=== PATIENT | male | born 1960 | race Caucasian/White ===

== ENCOUNTER 2018-04-30 04:41 | Emergency (ER) | payer OTHER ==
[2018-04-30] MEDS ORDERED: NA CHLORIDE 0.9% 1,000 ML ONE (06:05)
[2018-04-30 06:23] LABS: Absolute Lymphocytes (CBC) 2.2 K/uL (0.7-4.9); Absolute Monocytes 0.5 K/uL (0.1-1.3); Absolute Neutrophil 2.1 K/uL (1.8-8.0); Basophils % 0.9 % (0-1.3); Eosinophils % 4.8 % (0-4.4); Hematocrit 45.1 % (39.6-49.0); Lymphocytes % 43.1 % (15.3-44.8); MCH 29.5 pg (27.0-35.0); MCV 87.1 fL (80-100); MPV 8.5 fL (7.6-11.3); Monocytes % 9.2 % (3.3-12.3); RBC Red Blood Cell Count 5.18 M/uL (4.33-5.43)
[2018-04-30 06:36] LABS: Urine Blood NEGATIVE (NEG); Urine Glucose 3+ (NEG); Urine Protein NEGATIVE (NEG); Urine pH 5.5 (5.0-7.0)
[2018-04-30 06:43] LABS: Albumin 3.8 g/dL (3.4-5.0); Bilirubin Total 0.5 mg/dL (0.2-1.0); Potassium 3.9 mmol/L (3.5-5.1); Protein, Total 7.1 g/dL (6.4-8.2)
[2018-04-30] MEDS ORDERED: INSULIN -REGULAR HUMAN 50 UNIT/0.5 ML ML ONE (07:21)
--- NOTE | 2018-04-30 08:19 | RAD REPORT ---
EXAM DESCRIPTION: CT - Abdomen Pelvis W Contrast - 04/30/2018 6:59 am CLINICAL HISTORY: Abdominal pain left-sided abdominal pain COMPARISON: 2015 TECHNIQUE: Computed axial tomography of the abdomen pelvis was obtained. 100 cc Isovue-300 was admin istered intravenously. Oral contrast was not requested which limits evaluation of bowel. All CT scans are performed using dose optimization technique as appropriate and may include automated exposure control or mA/KV adjustment according to patient size. FINDINGS: The liver, spleen, pancreas, adrenal and left kidney appear unremarkable. Tiny nonobstruct ing right renal calculus is present. Gallstones are present. Gallbladder wall does not appear thickened. There is no evidence of diverticulitis. Appendix is normal Small left pericardiac lymph node is unchanged. Postsurgical changes involve stomach Spondylosis involves lumbar spine resulting in spinal stenosis IMPRESSION: Tiny nonobstructing right renal calculus Cholelithiasis without evidence cholecystitis
--- NOTE | 2018-04-30 08:43 | ER ---
Nurse's Notes [facility] Name: Herber Gracia Age: 57 yrs Sex: Male : 1960 Arrival Date: 04/30/2018 Time: 04:45 Bed 19 Private MD: Remington Navarro Diagnosis: Abdominal tenderness-adipose tissue left costal margin Presentation: 04/30 04:58 Presenting complaint: Patient states: I noticed pain on my left side that started a jb4 week and a half ago and on I noticed a lump on my left side. It didn't feel right and I was going to go see Dr. Nettles but the office was closed. Transition of care: patient was not received from another setting of care. Onset of symptoms was April 19, 2018. Risk Assessment: Do you want to hurt yourself or someone else? Patient reports no desire to harm self or others. Initial Sepsis Screen: Does the patient meet any 2 criteria? HR > 90 bpm. Yes Does the patient have a suspected source of infection? No. Patient's initial sepsis screen is negative. Care prior to arrival: None. 04:58 Method Of Arrival: Ambulatory jb4 04:58 Acuity: SPENCER 4 jb4 Triage Assessment: 05:03 General: Appears in no apparent distress. comfortable, Behavior is calm, cooperative, jb4 appropriate for age, Lump noted under the left breast.. Pain: Complains of pain in left lateral anterior chest Pain does not radiate. Pain currently is 4 out of 10 on a pain scale. at worst was 6 out of 10 on a pain scale. Quality of pain is described as dull, pressure, Pain began 1.5 weeks ago Is intermittent. EENT: No signs and/or symptoms were reported regarding the EENT system. Neuro: Level of Consciousness is awake, alert, obeys commands, Oriented to person, place, time, situation. Cardiovascular: Patient's skin is warm and dry. Respiratory: Airway is patent Respiratory effort is even, unlabored, Respiratory pattern is regular, symmetrical. GI: No signs and/or symptoms were reported involving the gastrointestinal system. : No signs and/or symptoms were reported regarding the genitourinary system. Derm: Skin is intact, Skin is pink, warm \T\ dry. Musculoskeletal: Circulation, motion, and sensation intact. Historical: - Allergies: 05:03 No Known Allergies; jb4 - Home Meds: 05:03 metformin 500 mg Oral tab 2 tabs 2 times per day [Active]; victoza [Active]; tresiba jb4 [Active]; meloxicam oral oral [Active]; valsartan oral oral [Active]; Prilosec 20 mg Oral cpDR 1 cap once daily [Active]; Lasix Oral [Active]; - PMHx: 05:03 BPH; Diabetes - NIDDM; GERD; Hypertension; jb4 - PSHx: 05:03 SHOULDERS X 2; GASTROPLASTY; HERNIATED DISCS X2; KNEES X 2; jb4 - Immunization history:: Adult Immunizations up to date, Flu vaccine is not up to date. - Social history:: Smoking status: Patient/guardian denies using tobacco, Patient uses alcohol, only on a social basis. - Ebola Screening: : No symptoms or risks identified at this time. - Family history:: not pertinent. Screenin:09 Abuse screen: Denies threats or abuse. Nutritional screening: No deficits noted. jb4 Tuberculosis screening: No symptoms or risk factors identified. Fall Risk None identified. Assessment: 05:09 General: see triage assessment.. jb4 06:00 Reassessment: Patient appears in no apparent distress at this time. Patient and/or jb4 family updated on plan of care and expected duration. Pain level reassessed. Patient is alert, oriented x 3, equal unlabored respirations, skin warm/dry/pink. 06:40 Reassessment: PT to ct. jb4 07:34 Reassessment: Patient appears in no apparent distress at this time. Patient and/or em family updated on plan of care and expected duration. Pain level reassessed. Patient is alert, oriented x 3, equal unlabored respirations, skin warm/dry/pink. Patient states feeling better. 08:18 Reassessment: Patient appears in no apparent distress at this time. Patient and/or em family updated on plan of care and expected duration. Pain level reassessed. Patient is alert, oriented x 3, equal unlabored respirations, skin warm/dry/pink. Patient states feeling better. 09:09 Reassessment: Patient appears in no apparent distress at this time. Patient and/or em family updated on plan of care and expected duration. Pain level reassessed. Patient is alert, oriented x 3, equal unlabored respirations, skin warm/dry/pink. Patient states feeling better. Vital Signs: 05:03 BP 149 / 76; Pulse 92; Resp 16; Temp 97.9; Pulse Ox 96% on R/A; Weight 131.54 kg (R); jb4 Height 5 ft. 9 in. (175.26 cm) (R); Pain 4/10; 06:00 BP 135 / 72; Pulse 73; Resp 18; Pulse Ox 95% on R/A; jb4 07:34 BP 123 / 83; Pulse 84; Resp 18; Pulse Ox 96% on R/A; Pain 4/10; em 08:17 BP 128 / 71; Pulse 71; Resp 16; Pulse Ox 97% on R/A; em 09:09 BP 119 / 71; Pulse 63; Resp 16; Pulse Ox 99% on R/A; em 05:03 Body Mass Index 42.83 (131.54 kg, 175.26 cm) jb4 ED Course: 04:45 Patient arrived in ED. es 04:46 Remington Navarro MD is Private Physician. es 04:58 Vinay Rincon, BARBI is Primary Nurse. jb4 05:01 Triage completed. jb4 05:02 Rashid Wynn MD is Attending Physician. ron 05:03 Arm band placed on right wrist. jb4 05:09 Patient has correct armband on for positive identification. Placed in gown. Call light jb4 in reach. Side rails up X 1. Pulse ox on. NIBP on. 05:37 X-ray completed. Portable x-ray completed in exam room. Patient tolerated procedure ls3 well. 05:37 CXR XRAY In Process Unspecified. EDMS 06:00 Initial lab(s) drawn, by me, sent to lab. Urine collected: clean catch specimen, clear. jb4 Inserted saline lock: 20 gauge in right Blood collected. 06:02 Noni Briscoe FNP-C is PHCP. snw 06:19 Radiology exam delayed due to lab results not completed at this time. (BUN/Creatinine). nj 06:43 Radiology exam delayed due to lab results not completed at this time. (BUN/Creatinine). nj 06:[address] via wheelchair. kw1 06:59 CT Abd/Pelvis - W/Contrast In Process Unspecified. EDMS 08:43 Remington Navarro MD is Referral Physician. snw 09:08 No provider procedures requiring assistance completed. intact, bleeding controlled, No em redness/swelling at site. Pressure dressing applied. Administered Medications: 06:18 Drug: NS 0.9% 1000 ml Route: IV; Rate: 1 bolus; Site: right antecubital; jb4 07:30 Follow up: IV Status: Completed infusion; IV Intake: 1000ml em 07:19 Drug: Insulin Regular Human 10 units {Co-Signature: em (Mikael rCooks [employer]ON FOREMAN/SUPERINTENDANT).} Route: ss Sub-Q; Site: right lower abdomen; 08:17 Follow up: Response: No adverse reaction; Blood sugar is lowered em Point of Care Testing: Blood Glucose: 08:17 Blood Glucose: 227 mg/dL; em Ranges: Intake: 07:30 IV: 1000ml; Total: 1000ml. em Outcome: 08:43 Discharge ordered by . snw 09:08 Discharged to home ambulatory. em 09:08 Condition: good 09:08 Discharge instructions given to patient, Instructed on discharge instructions, follow up and referral plans. Demonstrated understanding of instructions, follow-up care. 09:10 Patient left the ED. em Signatures: Dispatcher [employer] EDWA Rashid Wynn MD MD cha Therrien, Shelly, DISTRICT SUPERINTENDENT-C DISTRICT SUPERINTENDENT-Csnw Tiana Andrade Edgar, [employer] FOREMAN/SUPERINTENDANT [employer] FOREMAN/SUPERINTENDANT em Richa Fam RN RN Vinay Elena RN RN jb4 Tyson Ferraro Kimberly 1 Sushil Chin 3 Mikael Crooks [employer] FOREMAN/SUPERINTENDANT em
--- NOTE | 2018-04-30 08:43 | EDPHYS ---
Physician Documentation [facility] Name: Herber Gracia Age: 57 yrs Sex: Male : 1960 Arrival Date: 04/30/2018 Time: 04:45 Bed 19 Private MD: Remington Navarro ED Physician Rashid Wynn HPI: 04/30 05:39 This 57 yrs old Male presents to ER via Ambulatory with complaints of Lump on ron left side with pain. 05:39 The patient presents with abdominal pain in the upper abdomen. Onset: The ron symptoms/episode began/occurred 5 day(s) ago. The symptoms do not radiate. Associated signs and symptoms: none. The symptoms are described as dull. Severity of pain: At its worst the pain was mild in the emergency department the pain is unchanged. Historical: - Allergies: 05:03 No Known Allergies; jb4 - Home Meds: 05:03 metformin 500 mg Oral tab 2 tabs 2 times per day [Active]; victoza [Active]; tresiba jb4 [Active]; meloxicam oral oral [Active]; valsartan oral oral [Active]; Prilosec 20 mg Oral cpDR 1 cap once daily [Active]; Lasix Oral [Active]; - PMHx: 05:03 BPH; Diabetes - NIDDM; GERD; Hypertension; jb4 - PSHx: 05:03 SHOULDERS X 2; GASTROPLASTY; HERNIATED DISCS X2; KNEES X 2; jb4 - Immunization history:: Adult Immunizations up to date, Flu vaccine is not up to date. - Social history:: Smoking status: Patient/guardian denies using tobacco, Patient uses alcohol, only on a social basis. - Ebola Screening: : No symptoms or risks identified at this time. - Family history:: not pertinent. ROS: 05:39 Constitutional: Negative for fever, chills, and weight loss, Eyes: Negative for injury, ron pain, redness, and discharge, ENT: Negative for injury, pain, and discharge, Neck: Negative for injury, pain, and swelling, Cardiovascular: Negative for chest pain, palpitations, and edema, Respiratory: Negative for shortness of breath, cough, wheezing, and pleuritic chest pain, Back: Negative for injury and pain, : Negative for injury, bleeding, discharge, and swelling, MS/Extremity: Negative for injury and deformity, Skin: Negative for injury, rash, and discoloration, Neuro: Negative for headache, weakness, numbness, tingling, and seizure, Psych: Negative for depression, anxiety, suicide ideation, homicidal ideation, and hallucinations, Allergy/Immunology: Negative for hives, rash, and allergies, Endocrine: Negative for neck swelling, polydipsia, polyuria, polyphagia, and marked weight changes, Hematologic/Lymphatic: Negative for swollen nodes, abnormal bleeding, and unusual bruising. 05:39 Abdomen/GI: Positive for abdominal pain, of the left upper quadrant. Exam: 05:39 Constitutional: This is a well developed, well nourished patient who is awake, alert, ron and in no acute distress. Head/Face: Normocephalic, atraumatic. Eyes: Pupils equal round and reactive to light, extra-ocular motions intact. Lids and lashes normal. Conjunctiva and sclera are non-icteric and not injected. Cornea within normal limits. Periorbital areas with no swelling, redness, or edema. ENT: Nares patent. No nasal discharge, no septal abnormalities noted. Tympanic membranes are normal and external auditory canals are clear. Oropharynx with no redness, swelling, or masses, exudates, or evidence of obstruction, uvula midline. Mucous membranes moist. Neck: Trachea midline, no thyromegaly or masses palpated, and no cervical lymphadenopathy. Supple, full range of motion without nuchal rigidity, or vertebral point tenderness. No Meningismus. Chest/axilla: Normal chest wall appearance and motion. Nontender with no deformity. No lesions are appreciated. Cardiovascular: Regular rate and rhythm with a normal S1 and S2. No gallops, murmurs, or rubs. Normal PMI, no JVD. No pulse deficits. Respiratory: Lungs have equal breath sounds bilaterally, clear to auscultation and percussion. No rales, rhonchi or wheezes noted. No increased work of breathing, no retractions or nasal flaring. Abdomen/GI: Soft, non-tender, with normal bowel sounds. No distension or tympany. No guarding or rebound. No evidence of tenderness throughout. Back: No spinal tenderness. No costovertebral tenderness. Full range of motion. Male : Normal genitalia with no discharge or lesions. Skin: Warm, dry with normal turgor. Normal color with no rashes, no lesions, and no evidence of cellulitis. MS/ Extremity: Pulses equal, no cyanosis. Neurovascular intact. Full, normal range of motion. Neuro: Awake and alert, GCS 15, oriented to person, place, time, and situation. Cranial nerves II-XII grossly intact. Motor strength 5/5 in all extremities. Sensory grossly intact. Cerebellar exam normal. Normal gait. Psych: Awake, alert, with orientation to person, place and time. Behavior, mood, and affect are within normal limits. Vital Signs: 05:03 BP 149 / 76; Pulse 92; Resp 16; Temp 97.9; Pulse Ox 96% on R/A; Weight 131.54 kg (R); jb4 Height 5 ft. 9 in. (175.26 cm) (R); Pain 4/10; 06:00 BP 135 / 72; Pulse 73; Resp 18; Pulse Ox 95% on R/A; jb4 07:34 BP 123 / 83; Pulse 84; Resp 18; Pulse Ox 96% on R/A; Pain 4/10; em 08:17 BP 128 / 71; Pulse 71; Resp 16; Pulse Ox 97% on R/A; em 09:09 BP 119 / 71; Pulse 63; Resp 16; Pulse Ox 99% on R/A; em 05:03 Body Mass Index 42.83 (131.54 kg, 175.26 cm) 4 MDM: 05:02 Patient medically screened. [facility] 05:42 Data reviewed: vital signs, nurses notes, lab test result(s), radiologic studies, CT ron scan, plain films. 04/30 05:39 Order name: CBC with Diff; Complete Time: 06:40 ron 04/30 05:39 Order name: Comprehensive Metabolic Panel; Complete Time: 06:50 [facility] 04/30 05:12 Order name: CXR XRAY jb4 04/30 05:39 Order name: CT Abd/Pelvis - W/Contrast; Complete Time: 08:42 [facility] 04/30 05:43 Order name: Lipase; Complete Time: 06:40 [facility] 04/30 06:17 Order name: Urine Dipstick--Ancillary (enter results); Complete Time: 06:40 mw 04/30 05:39 Order name: Urine Dipstick-Ancillary (obtain specimen); Complete Time: 06:18 [facility] 04/30 07:49 Order name: FSBS; Complete Time: 08:17 snw Administered Medications: 06:18 Drug: NS 0.9% 1000 ml Route: IV; Rate: 1 bolus; Site: right antecubital; jb4 07:30 Follow up: IV Status: Completed infusion; IV Intake: 1000ml em 07:19 Drug: Insulin Regular Human 10 units {Co-Signature: em (Mikael Crooks BELL SPINNER SOUSAPHONES).} Route: ss Sub-Q; Site: right lower abdomen; 08:17 Follow up: Response: No adverse reaction; Blood sugar is lowered em Point of Care Testing: Blood Glucose: : Blood Glucose: 227 mg/dL; em Ranges: Critical Glucose Levels:Adult <50 mg/dl or >400 mg/dl <40 mg/dl or >180 mg/dl Disposition: 04/30/18 08:43 Discharged to Home. Impression: Abdominal tenderness - adipose tissue left costal margin. - Condition is Stable. - Discharge Instructions: Abdominal Pain, Adult, Type 2 Diabetes Mellitus, Diagnosis, Adult, Abdominal Pain, Adult, [id number]. - Medication Reconciliation Form, Thank You Letter, Antibiotic Education, Prescription Opioid Use form. - Follow up: Remington Navarro; When: 2 - 3 days; Reason: Recheck today's complaints, Continuance of care, Re-evaluation by your physician. - Problem is new. - Symptoms have improved. Signatures: Dispatcher [employer] EDOH Rashid Wynn MD MD cha Therrien, Shelly, STUNT DOUBLE-C STUNT DOUBLE-Csnw Mikael Crooks, SHAMIKA [employer] SPINNER SOUSAPHONES em Richa Fam RN RN ss Bryson, James, RN RN jb4 Mikael Crooks BELL SPINNER SOUSAPHONES em Corrections: (The following items were deleted from the chart) 09:10 08:43 04/30/2018 08:43 Discharged to Home. Impression: Abdominal tenderness - adipose em tissue left costal margin. Condition is Stable. Discharge Instructions: Abdominal Pain, Adult, Type 2 Diabetes Mellitus, Diagnosis, Adult, Abdominal Pain, Adult, [id number]. Forms are Medication Reconciliation Form, Thank You Letter, Antibiotic Education, Prescription Opioid Use. Follow up: Remington Navarro; When: 2 - 3 days; Reason: Recheck today's complaints, Continuance of care, Re-evaluation by your physician. Problem is new. Symptoms have improved. snw
[2018-04-30 09:14] VITALS: TEMP 97.9
[2018-04-30 09:19] VITALS: BP 119/71; O2SAT 99
--- NOTE | 2018-04-30 09:58 | RAD REPORT ---
EXAM DESCRIPTION: Shahram Single View04/30/2018 5:37 am CLINICAL HISTORY: Chest pain COMPARISON: 2016 FINDINGS: The lungs appear clear of acute infiltrate. The heart is normal size IMPRESSION: No acute abnormalities displayed
== END 2018-04-30 09:10 | disposition home or self-care (01) ==
LOC: ER 04:41
DX: R10.812 Left upper quadrant abdominal tenderness (principal); E65 Localized adiposity; I10 Essential (primary) hypertension; E11.9 Type 2 diabetes mellitus without complications; K21.9 Gastro-esophageal reflux disease without esophagitis
CPT/HCPCS: 36415; 71045; 74177; 80053; 81003; 82962; 83690; 85025; 96360; 96372; 99284; J7030; Q9967

== ENCOUNTER 2019-04-29 05:16 | Observation (INO) | payer OTHER ==
[2019-04-29] MEDS ORDERED: ONDANSETRON 4 MG/2 ML VIAL ONE ×2 (05:57→08:18)
[2019-04-29] MEDS ORDERED: MORPHINE 4 MG/ML SYR ONE (05:57)
[2019-04-29] MEDS ORDERED: NA CHLORIDE 0.9% 1,000 ML ONE ×2 (06:15→09:44)
[2019-04-29] MEDS ORDERED: FAMOTIDINE 20 MG/2 ML VIAL IV ONE (06:15)
[2019-04-29 06:22] LABS: Absolute Lymphocytes (CBC) 1.3 K/uL (0.7-4.9); Basophils % 0.6 % (0-1.3); Hematocrit 47.1 % (39.6-49.0); Lymphocytes % 21.8 % (15.3-44.8); MPV 8.2 fL (7.6-11.3); RBC Red Blood Cell Count 5.22 M/uL (4.33-5.43)
[2019-04-29 06:46] LABS: Protime INR 0.91
[2019-04-29 06:47] LABS: ALT/SGPT 55 U/L (12-78); AST/SGOT 32 U/L (15-37); Albumin 3.9 g/dL (3.4-5.0); Alkaline Phosphatase 51 U/L (45-117); BUN Blood Urea Nitrogen 9 mg/dL (7-18); Bicarbonate 26 mmol/L (21-32); Bilirubin Direct 0.2 mg/dL (0-0.2); Bilirubin Total 0.8 mg/dL (0.2-1.0); Glucose Level 281 mg/dL (74-106); Lipase 78 U/L (73-393); Magnesium 1.7 mg/dL (1.8-2.4); NT PRO-BNP 73 pg/mL (<125); Potassium 4.6 mmol/L (3.5-5.1); Protein, Total 7.5 g/dL (6.4-8.2); Sodium Level 136 mmol/L (136-145); Troponin (Emerg Dept Use Only) < 0.02 ng/mL (0.0-0.045)
[2019-04-29] MEDS ORDERED: MAGNESIUM SULFATE 1 gm IVPB 1 GM/100 ML BAG IV ONE (07:09)
--- NOTE | 2019-04-29 08:17 | RAD REPORT ---
EXAM DESCRIPTION: CT - Abdomen Pelvis W Contrast - 04/29/2019 7:51 am CLINICAL HISTORY: ABD PAIN, nausea and vomiting history of gastric surgery COMPARISON: CT imaging April 2018 TECHNIQUE: Biphasic, helical CT imaging of the abdomen and pelvis was performed following 100 ml non -ionic IV contrast. Oral contrast was given. All CT scans are performed using dose optimization technique as appropriate and may include automated exposure control or mA/KV adjustment according to patient size. FINDINGS: No suspicious findings in the lung bases. Liver shows moderate diffuse fatty infiltration the liver. No focal liver lesion identified. No pancr eatic or peripancreatic significant finding. Clips and calcification are present along the anterior s uperior margin of the spleen. No acute splenic process. Multi stone cholelithiasis present similar to comparison. No wall thickening or edema seen. No duct stone or biliary tree dilatation. Symmetric renal function is seen with no hydronephrosis or suspicious renal mass. No pyelonephritis o r acute parenchymal process. No bladder abnormalities. No adrenal abnormalities. No gastric dilatation or gastric wall thickening. No gastric outlet obstruction. Postsurgical changes to the stomach are present. No duodenum acute finding. Stomach and duodenum show no evidence for ron nge since April 2018. No dilation of the large or small bowel. Retrocecal appendix is normal. No free air, free fluid or i nflammatory stranding. No hernia, mass or bulky lymphadenopathy. No suspicious bony findings. IMPRESSION: No bowel obstruction, free air or surgically emergent finding. No active process identif iable. Patient has multi stone cholelithiasis. No evidence for duct stone or acute gallbladder or biliary tr ee process. Moderate diffuse fatty infiltration of the liver.
--- NOTE | 2019-04-29 08:43 | RAD REPORT ---
EXAM DESCRIPTION: US - Abdomen Exam Limited - 04/29/2019 8:26 am CLINICAL HISTORY: ABD PAIN COMPARISON: Abdomen Pelvis W Contrast dated 04/29/2019 FINDINGS: Multiple 5 mm or less gallstones seen. Gallstones have been previously diagnosed in this p atient. No wall thickening or pericholecystic fluid. No duct stone identifiable. No dilatation of the biliary tree. Fatty infiltration a partially imaged liver. IMPRESSION: Multi stone cholelithiasis as previously detailed. No acute gallbladder finding. No duct stone identified and no biliary tree dilatation.
--- NOTE | 2019-04-29 09:08 | RAD REPORT ---
EXAM DESCRIPTION: RAD - Chest Single View - 04/29/2019 7:01 am CLINICAL HISTORY: Nausea, vomiting, abdominal pain COMPARISON: April 2018 TECHNIQUE: AP portable chest image was obtained 0655 hours . FINDINGS: Lung volumes are low. No peripheral mass or consolidation. No significant failure or volum e overload. Heart and vasculature are normal. No measurable pleural effusion and no pneumothorax. No acute bony abnormality seen. No acute aortic findings suspected. IMPRESSION: No acute cardiopulmonary process.
[2019-04-29] MEDS ORDERED: PROMETHAZINE 25 MG/ML VIAL ONE (09:42)
--- NOTE | 2019-04-29 09:54 | EDPHYS ---
Physician Documentation [facility] Name: Herber Gracia Age: 58 yrs Sex: Male : 1960 Arrival Date: 04/29/2019 Time: 05:17 Bed 7 Private MD: VALDEZ Physician Rashid Wynn HPI: 04/29 06:01 This 58 yrs old Male presents to ER via Ambulatory with complaints of ron Abdominal Pain, Nausea/Vomiting. 06:01 The patient presents to the emergency department with nausea, vomiting, abdominal pain, ron of the epigastric area and right upper quadrant. Onset: The symptoms/episode began/occurred yesterday. Possible causes: unknown. The symptoms are aggravated by movement, pressure, food , The symptoms are alleviated by remaining still. Associated signs and symptoms: The patient has no apparent associated signs or symptoms. Severity of symptoms: At their worst the symptoms were moderate in the emergency department the symptoms are unchanged. The patient has not experienced similar symptoms in the past. Historical: - Allergies: 05:27 No Known Allergies; ea - Home Meds: 05:27 victoza [Active]; ea - PMHx: 05:27 BPH; Diabetes - NIDDM; GERD; Hypertension; ea - PSHx: 05:27 SHOULDERS X 2; KNEES X 2; HERNIATED DISCS X2; GASTROPLASTY; ea - Immunization history:: Adult Immunizations up to date. - Social history:: Smoking status: Patient/guardian denies using tobacco. - Ebola Screening: : No symptoms or risks identified at this time. - Family history:: not pertinent. ROS: 06:01 Constitutional: Negative for fever, chills, and weight loss, Eyes: Negative for injury, ron pain, redness, and discharge, ENT: Negative for injury, pain, and discharge, Neck: Negative for injury, pain, and swelling, Respiratory: Negative for shortness of breath, cough, wheezing, and pleuritic chest pain, Back: Negative for injury and pain, : Negative for injury, bleeding, discharge, and swelling, MS/Extremity: Negative for injury and deformity, Skin: Negative for injury, rash, and discoloration, Neuro: Negative for headache, weakness, numbness, tingling, and seizure, Psych: Negative for depression, anxiety, suicide ideation, homicidal ideation, and hallucinations, Allergy/Immunology: Negative for hives, rash, and allergies, Endocrine: Negative for neck swelling, polydipsia, polyuria, polyphagia, and marked weight changes, Hematologic/Lymphatic: Negative for swollen nodes, abnormal bleeding, and unusual bruising. 06:01 Cardiovascular: Positive for palpitations. 06:01 Abdomen/GI: Positive for abdominal pain, of the epigastric area, right upper quadrant and left upper quadrant. Exam: 06:01 Constitutional: This is a well developed, well nourished patient who is awake, alert, ron and in no acute distress. Head/Face: Normocephalic, atraumatic. Eyes: Pupils equal round and reactive to light, extra-ocular motions intact. Lids and lashes normal. Conjunctiva and sclera are non-icteric and not injected. Cornea within normal limits. Periorbital areas with no swelling, redness, or edema. ENT: Nares patent. No nasal discharge, no septal abnormalities noted. Tympanic membranes are normal and external auditory canals are clear. Oropharynx with no redness, swelling, or masses, exudates, or evidence of obstruction, uvula midline. Mucous membranes moist. Neck: Trachea midline, no thyromegaly or masses palpated, and no cervical lymphadenopathy. Supple, full range of motion without nuchal rigidity, or vertebral point tenderness. No Meningismus. Chest/axilla: Normal chest wall appearance and motion. Nontender with no deformity. No lesions are appreciated. Respiratory: Lungs have equal breath sounds bilaterally, clear to auscultation and percussion. No rales, rhonchi or wheezes noted. No increased work of breathing, no retractions or nasal flaring. Back: No spinal tenderness. No costovertebral tenderness. Full range of motion. Male : Normal genitalia with no discharge or lesions. Skin: Warm, dry with normal turgor. Normal color with no rashes, no lesions, and no evidence of cellulitis. MS/ Extremity: Pulses equal, no cyanosis. Neurovascular intact. Full, normal range of motion. Neuro: Awake and alert, GCS 15, oriented to person, place, time, and situation. Cranial nerves II-XII grossly intact. Motor strength 5/5 in all extremities. Sensory grossly intact. Cerebellar exam normal. Normal gait. Psych: Awake, alert, with orientation to person, place and time. Behavior, mood, and affect are within normal limits. 06:01 Cardiovascular: Rate: tachycardic, Rhythm: regular, Pulses: Pulses are 4+ in bilateral radial, brachial, femoral, popliteal, posterior tibial and and dorsalis pedis arteries.. Heart sounds: normal, Edema: is not appreciated, JVD: is not appreciated. 06:01 Abdomen/GI: Inspection: distension, Bowel sounds: normal, Palpation: moderate abdominal tenderness, in the right lower quadrant and left lower quadrant, Liver: no appreciated palpable abnormalities, Hernia: not appreciated. Vital Signs: 05:27 BP 166 / 82; Pulse 104; Resp 19; Temp 97.9; Pulse Ox 95% on R/A; Weight 131.54 kg; ea Height 5 ft. 9 in. (175.26 cm); Pain 0/10; 06:35 BP 132 / 92; Pulse 76; Resp 18; Pulse Ox 94% on R/A; ea 07:11 BP 165 / 73; Pulse 78; Resp 15; Pulse Ox 100% on R/A; Pain 0/10; hb 08:16 BP 156 / 76; Pulse 86; Resp 15; Pulse Ox 100% on R/A; Pain 0/10; hb 09:45 BP 148 / 6; Pulse 84; Resp 15; Pulse Ox 100% on R/A; Pain 1/10; hb 10:45 BP 153 / 78; Pulse 76; Resp 14; Pulse Ox 100% on R/A; hb 05:27 Body Mass Index 42.83 (131.54 kg, 175.26 cm) ea MDM: 05:36 Patient medically screened. [facility] 06:04 Data reviewed: vital signs, nurses notes, lab test result(s), EKG, radiologic studies, [facility] CT scan, plain films. 09:46 Physician consultation: Shahram Jasso MD was called at 09:46, was contacted at 09:46, cp regarding consult, patient's condition, would like admission per Dr. Magdiel Oneal MD. 04/29 06:01 Order name: Basic Metabolic Panel; Complete Time: 07:02 [facility] 04/29 06:01 Order name: CBC with Diff; Complete Time: 07:02 [facility] 04/29 06:01 Order name: LFT's; Complete Time: 07:02 [facility] 04/29 06:01 Order name: Magnesium; Complete Time: 07:02 [facility] 04/29 06:01 Order name: NT PRO-BNP; Complete Time: 07:02 [facility] 04/29 06:01 Order name: PT-INR; Complete Time: 07:02 [facility] 04/29 06:01 Order name: Troponin (emerg Dept Use Only); Complete Time: 07:02 [facility] 04/29 06:01 Order name: XRAY Chest (1 view); Complete Time: 09:13 [facility] 04/29 06:01 Order name: Lipase; Complete Time: 07:02 [facility] 04/29 06:01 Order name: US Abdomen Limited; Complete Time: 09:13 [facility] 04/29 09:14 Interpretation: Report reviewed. cp 04/29 06:01 Order name: CT Abd/Pelvis - PO and IV Contrast; Complete Time: 08:41 [facility] 04/29 06:01 Order name: EKG; Complete Time: 06:01 [facility] 04/29 06:01 Order name: Cardiac monitoring; Complete Time: 06:50 [facility] 04/29 06:01 Order name: EKG - Nurse/Tech; Complete Time: 06:50 [facility] 04/29 06:01 Order name: IV Saline Lock; Complete Time: 06:28 [facility] 04/29 06:01 Order name: Labs collected and sent; Complete Time: 06:28 [facility] 04/29 06:01 Order name: O2 Per Protocol; Complete Time: 06:28 [facility] 04/29 06:01 Order name: O2 Sat Monitoring; Complete Time: 06:28 [facility] 04/29 08:43 Order name: PO challenge; Complete Time: 09:20 cp 04/29 09:48 Order name: NPO; Complete Time: 09:50 cp Administered Medications: 06:05 Drug: Zofran 4 mg Route: IVP; Site: right antecubital; ea 06:29 Follow up: Response: No adverse reaction; Nausea is decreased ea 06:06 Drug: morphine 4 mg {Note: RASS 1.} Route: IVP; Site: right antecubital; ea 06:29 Follow up: Response: No adverse reaction; Pain is decreased; RASS: Alert and Calm (0) ea 06:25 Drug: NS 0.9% 1000 ml Route: IV; Rate: 1 bolus; Site: right antecubital; ea 07:39 Follow up: Response: No adverse reaction; IV Status: Completed infusion; IV Intake: hb 1000ml 06:26 Drug: Pepcid 20 mg Route: IVP; Site: right antecubital; ea 07:11 Follow up: Response: No adverse reaction hb 07:11 Drug: Magnesium Sulfate 1 grams Route: IVPB; Infused Over: 1 hrs; Site: right hb antecubital; 08:00 Follow up: Response: No adverse reaction; IV Status: Completed infusion; IV Intake: 50mlhb 08:23 Drug: Zofran 4 mg Route: IVP; Site: right antecubital; hb 09:00 Follow up: Response: No adverse reaction; Nausea is decreased hb 09:48 Drug: Phenergan 25 mg Route: IVP; Site: right antecubital; hb 10:25 Follow up: Response: No adverse reaction; Nausea is decreased hb 09:48 Drug: NS 0.9% 1000 ml Route: IV; Rate: 100 ml/hr; Site: right antecubital; hb 10:11 Drug: Cipro 400 mg Volume: 200 ml; Route: IVPB; Infused Over: 60 mins; Site: right hb antecubital; 11:16 Follow up: Response: No adverse reaction; IV Status: Completed infusion; IV Intake: hb 200ml 10:11 Drug: Flagyl 500 mg Volume: 100 ml; Route: IVPB; Rate: 200 ml/hr; Infused Over: 30 hb mins; Site: right antecubital; 11:16 Follow up: Response: No adverse reaction; IV Status: Completed infusion; IV Intake: hb 100ml Disposition: 04/29/19 09:53 Hospitalization ordered by Magdiel Oneal for Inpatient Admission. Preliminary diagnosis are Upper abdominal pain, unspecified - intractable, Nausea and vomiting - intractable, Cholelithiasis. - Bed requested for Telemetry/MedSurg (Inpatient). - Status is Inpatient Admission. hb - Condition is Stable. - Problem is new. - Symptoms have improved. UTI on Admission? No Addendum: 05/01/2019 08:30 Co-signature as Attending Physician, Rashid Wynn MD I agree with the assessment and c mora plan of care. Signatures: Dispatcher [employer] Nay Chapin RN Rashid Babb MD MD cha Page, Corey, PA PA cp Baxter, Heather, RN RN Beatriz Rebolledo RN RN ea Corrections: (The following items were deleted from the chart) 04/29 11:38 09:53 Hospitalization Ordered by Magdiel Oneal MD for Inpatient Admission. Preliminary dw diagnosis is Upper abdominal pain, unspecified - intractable; Nausea and vomiting - intractable; Cholelithiasis. Bed requested for Telemetry/MedSurg (Inpatient). Status is Inpatient Admission. Condition is Stable. Problem is new. Symptoms have improved. UTI on Admission? No. cp 12:46 11:38 04/29/2019 09:53 Hospitalization Ordered by Magdiel Oneal MD for Inpatient hb Admission. Preliminary diagnosis is Upper abdominal pain, unspecified - intractable; Nausea and vomiting - intractable; Cholelithiasis. Bed requested for Telemetry/MedSurg (Inpatient). Status is Inpatient Admission. Condition is Stable. Problem is new. Symptoms have improved. UTI on Admission? No. dw
--- NOTE | 2019-04-29 09:54 | ER ---
Nurse's Notes [facility] Name: Herber Gracia Age: 58 yrs Sex: Male : 1960 Arrival Date: 04/29/2019 Time: 05:17 Bed 7 Private MD: Diagnosis: Upper abdominal pain, unspecified-intractable;Nausea and vomiting-intractable;Cholelithiasis Presentation: 04/29 05:24 Presenting complaint: Patient states: Reports nausea and vomiting that started at 10 PM ea last night, pt reports he is having "abdominal discomfort, every time I vomit it's just bile". Transition of care: patient was not received from another setting of care. Onset of symptoms was April 29, 2019. Risk Assessment: Do you want to hurt yourself or someone else? Patient reports no desire to harm self or others. Initial Sepsis Screen: Does the patient meet any 2 criteria? No. Patient's initial sepsis screen is negative. Does the patient have a suspected source of infection? No. Patient's initial sepsis screen is negative. Care prior to arrival: None. 05:24 Method Of Arrival: Ambulatory ea 05:24 Acuity: SPENCER 3 ea Triage Assessment: 05:28 General: Appears in no apparent distress. Behavior is calm, cooperative, appropriate ea for age. Pain: Denies pain. Neuro: Level of Consciousness is awake, alert, obeys commands, Oriented to person, place, time, situation. Respiratory: Airway is patent Respiratory effort is even, unlabored, Respiratory pattern is regular, symmetrical. GI: Abdomen is non-distended. Derm: Skin is pink, warm \\T\\ dry. Historical: - Allergies: 05:27 No Known Allergies; ea - Home Meds: 05:27 victoza [Active]; ea - PMHx: 05:27 BPH; Diabetes - NIDDM; GERD; Hypertension; ea - PSHx: 05:27 SHOULDERS X 2; KNEES X 2; HERNIATED DISCS X2; GASTROPLASTY; ea - Immunization history:: Adult Immunizations up to date. - Social history:: Smoking status: Patient/guardian denies using tobacco. - Ebola Screening: : No symptoms or risks identified at this time. - Family history:: not pertinent. Screenin:28 Abuse screen: Denies threats or abuse. Nutritional screening: No deficits noted. ea Tuberculosis screening: No symptoms or risk factors identified. Fall Risk None identified. Assessment: 05:28 Reassessment: see triage assessment. ea 06:37 Reassessment: Patient and/or family updated on plan of care and expected duration. Pain ea level reassessed. Patient is alert, oriented x 3, equal unlabored respirations, skin warm/dry/pink. 07:11 Reassessment: Patient appears in no apparent distress at this time. Patient and/or hb family updated on plan of care and expected duration. Pain level reassessed. Patient is alert, oriented x 3, equal unlabored respirations, skin warm/dry/pink. Patient states symptoms have improved. 08:00 Reassessment: Patient appears in no apparent distress at this time. Patient and/or hb family updated on plan of care and expected duration. Pain level reassessed. Patient is alert, oriented x 3, equal unlabored respirations, skin warm/dry/pink. 08:24 Reassessment: Pt c/o nausea, NAD, VSS. JENAE Mike notified, repeat Zofran administered as hb ordered. US at bedside. 09:15 Reassessment: Patient appears in no apparent distress at this time. Patient and/or hb family updated on plan of care and expected duration. Pain level reassessed. Patient is alert, oriented x 3, equal unlabored respirations, skin warm/dry/pink. 09:20 Reassessment: Pt provided ronald elsi as requested for PO Challenge. hb 09:46 Reassessment: Pt actively vomiting, JENAE Mike notified, Phenergan administered as hb ordered. Pt NPO until further notice, pt verbalized understanding. 10:30 Reassessment: Patient appears in no apparent distress at this time. Patient and/or hb family updated on plan of care and expected duration. Pain level reassessed. Patient is alert, oriented x 3, equal unlabored respirations, skin warm/dry/pink. 11:17 Reassessment: Patient appears in no apparent distress at this time. Patient and/or hb family updated on plan of care and expected duration. Pain level reassessed. Patient is alert, oriented x 3, equal unlabored respirations, skin warm/dry/pink. 11:48 Reassessment: Attempted to call report to floor, no answer. Vital Signs: 05:27 BP 166 / 82; Pulse 104; Resp 19; Temp 97.9; Pulse Ox 95% on R/A; Weight 131.54 kg; ea Height 5 ft. 9 in. (175.26 cm); Pain 0/10; 06:35 BP 132 / 92; Pulse 76; Resp 18; Pulse Ox 94% on R/A; ea 07:11 BP 165 / 73; Pulse 78; Resp 15; Pulse Ox 100% on R/A; Pain 0/10; hb 08:16 BP 156 / 76; Pulse 86; Resp 15; Pulse Ox 100% on R/A; Pain 0/10; hb 09:45 BP 148 / 6; Pulse 84; Resp 15; Pulse Ox 100% on R/A; Pain 1/10; hb 10:45 BP 153 / 78; Pulse 76; Resp 14; Pulse Ox 100% on R/A; hb 05:27 Body Mass Index 42.83 (131.54 kg, 175.26 cm) ea ED Course: 05:17 Patient arrived in ED. ds1 05:24 Beatriz Rebolledo RN is Primary Nurse. ea 05:26 Triage completed. ea 05:26 Arm band placed on right wrist. Patient placed in an exam room, on a stretcher, on ea pulse oximetry. 05:28 Patient has correct armband on for positive identification. Placed in gown. Bed in low ea position. Call light in reach. 05:36 Rashid Wynn MD is Attending Physician. ron 05:59 Initial lab(s) drawn, by ut, sent to lab. Inserted saline lock: 20 gauge in right ak1 antecubital area, using aseptic technique. Blood collected. 06:46 Note: Patient finished oral contrast at 6:15. kw1 07:01 XRAY Chest (1 view) In Process Unspecified. EDMS 07:42 Rashid Lin PA is PHCP. cp 07:51 CT Abd/Pelvis - PO and IV Contrast In Process Unspecified. EDMS 07:56 CT completed. Patient tolerated procedure well. Patient taken to ultrasound. bq 08:12 Ultrasound completed. Patient tolerated well. Note: pt returned to room via wheelchair sg3 no issues. 08:26 US Abdomen Limited In Process Unspecified. EDMS 09:52 Magdiel Oneal MD is Hospitalizing Provider. cp 09:53 Primary Nurse role handed off by Beatriz Rebolledo, RN hb 09:53 Gabbie Iyer RN is Primary Nurse. hb 12:07 No provider procedures requiring assistance completed. Patient admitted, IV remains in hb place. Administered Medications: 06:05 Drug: Zofran 4 mg Route: IVP; Site: right antecubital; ea 06:29 Follow up: Response: No adverse reaction; Nausea is decreased ea 06:06 Drug: morphine 4 mg {Note: RASS 1.} Route: IVP; Site: right antecubital; ea 06:29 Follow up: Response: No adverse reaction; Pain is decreased; RASS: Alert and Calm (0) ea 06:25 Drug: NS 0.9% 1000 ml Route: IV; Rate: 1 bolus; Site: right antecubital; ea 07:39 Follow up: Response: No adverse reaction; IV Status: Completed infusion; IV Intake: hb 1000ml 06:26 Drug: Pepcid 20 mg Route: IVP; Site: right antecubital; ea 07:11 Follow up: Response: No adverse reaction hb 07:11 Drug: Magnesium Sulfate 1 grams Route: IVPB; Infused Over: 1 hrs; Site: right hb antecubital; 08:00 Follow up: Response: No adverse reaction; IV Status: Completed infusion; IV Intake: 50mlhb 08:23 Drug: Zofran 4 mg Route: IVP; Site: right antecubital; hb 09:00 Follow up: Response: No adverse reaction; Nausea is decreased hb 09:48 Drug: Phenergan 25 mg Route: IVP; Site: right antecubital; hb 10:25 Follow up: Response: No adverse reaction; Nausea is decreased hb 09:48 Drug: NS 0.9% 1000 ml Route: IV; Rate: 100 ml/hr; Site: right antecubital; hb 10:11 Drug: Cipro 400 mg Volume: 200 ml; Route: IVPB; Infused Over: 60 mins; Site: right hb antecubital; 11:16 Follow up: Response: No adverse reaction; IV Status: Completed infusion; IV Intake: hb 200ml 10:11 Drug: Flagyl 500 mg Volume: 100 ml; Route: IVPB; Rate: 200 ml/hr; Infused Over: 30 hb mins; Site: right antecubital; 11:16 Follow up: Response: No adverse reaction; IV Status: Completed infusion; IV Intake: hb 100ml Intake: 07:39 IV: 1000ml; Total: 1000ml. hb 08:00 IV: 50ml; Total: 1050ml. hb 11:16 IV: 100ml; Total: 1150ml. hb 11:16 IV: 200ml; Total: 1350ml. hb Outcome: 09:53 Decision to Hospitalize by Provider. cp 12:07 Admitted to Tele accompanied by tech, via wheelchair, room 410, with chart. hb 12:07 Condition: stable 12:07 Instructed on the need for admit, Demonstrated understanding of instructions. 12:46 Patient left the ED. hb Signatures: Dispatcher [employer] EDAK Rashid Wynn MD MD cha Quilty, Betty bq Sanford, Demi ds1 Gilda Chinchilla RN RN ak1 Rashid Lin PA PA cp Baxter, Heather, RN RN Beatriz Kulkarni RN RN ea Wilhelm, Kimberly kw1 Odilia Gomez sg3
[2019-04-29] MEDS ORDERED: METRONIDAZOLE 500mg IVPB 500 MG/100 ML BAG IV ONE (10:16)
[2019-04-29] MEDS ORDERED: CIPROFLOXACIN 400mg IV 400 MG/200 ML BAG IV ONE (10:16)
[2019-04-29 13:10] VITALS: BMI 43.1
[2019-04-29] MEDS ORDERED: MORPHINE 2 MG/ML SYR IV PRN (14:21)
[2019-04-29] MEDS ORDERED: ACETAMINOPHEN 500 MG TAB PO PRN (14:21)
[2019-04-29] MEDS ORDERED: ONDANSETRON 4 MG/2 ML VIAL IV PRN (14:21)
[2019-04-29] MEDS: D5 0.45 NS 1,000 ML IV SCH (14:48)
[2019-04-29] MEDS: INSULIN -REGULAR HUMAN 50 UNIT/0.5 ML ML SQ SCH ×3 (14:55→20:33)
[2019-04-29 16:48] LABS: Urine Appearance CLEAR; Urine Bilirubin NEGATIVE (NEG); Urine Blood NEGATIVE (NEG); Urine Color YELLOW; Urine Glucose 3+ (NEG); Urine Protein NEGATIVE (NEG); Urine Specific Gravity >=1.030 (1.005-1.030); Urine Urobilinogen 0.2 mg/dL (0.2-1.0)
[2019-04-29 17:03] LABS: Urine Bacteria NONE SEEN /HPF (NONE SEEN); Urine Culture Reflex Order NOT NEEDED; Urine RBC NONE SEEN /HPF (NONE SEEN)
[2019-04-29] MEDS: CIPROFLOXACIN 400mg IV 400 MG/200 ML BAG IV SCH (20:33)
[2019-04-29] MEDS: METRONIDAZOLE 500mg IVPB 500 MG/100 ML BAG IV SCH (20:33)
--- NOTE | 2019-04-29 22:38 | CON ---
Date of Consultation: 04/29/2019 Diagnoses: Acute cholecystitis, acute abdominal pain, intractable abdominal pain, symptomatic cholel ithiasis. History Of Present Illness: This is a case of a 58-year-old patient with history of morbid obesity, also history of diabetes, who comes in today complaining of epigastric right upper quadrant pain radi ating to the back with nausea and bloating. The pain did not subside in ER, so patient was admitted also for diabetes control and a surgical consult was obtained for cholecystectomy. Patient states so me nausea, some bloating. No dysuria, hematuria, hematochezia, or melena. No recent traveling out o f the country. No family members sick at home. Patient had bariatric surgery in 1997. He believe i s a gastric banding. He denied to do have any [id number]-Y. This was in 1997, so we have no records. Patient has a midline incision in the abdomen. Review of Systems: Ten points were unremarkable. Medical Problems: Morbid obesity, diabetes type 2, GERD, and hypertension. Medications: Victoza. Past Surgical History: Include knee and shoulder surgery, surgery, and gastroplasty. Social History: He does not smoke. He does not drink alcohol. Family History: Noncontributory. Physical Examination: General: The patient is awake and alert. HEENT: Pupils are equal and reactive, anicteric. Neck: Supple. Chest: Clear. Abdomen: Epigastric right upper quadrant tenderness with Doan sign positive. There is a midline i ncision. The rest of abdomen is soft and depressible. Rectal/Genitalia: Deferred. Extremities: Good capillary refill. Diagnostic Studies: Blood work reviewed with LFTs negative. Ultrasound of the gallbladder shows gal lstones. Assessment: This is the case of a 58-year-old patient with acute cholecystitis, symptomatic cholelit hiasis, Doan sign positive. Patient wants to have surgery done during this admission. So benefits and risks of laparoscopic, possible open cholecystectomy fully explained, which include but are not limited to infection, bleeding, damage to adjacent structures as complication, choledocholithiasis, b ile leak, pancreatitis, LA, and even . He also understands this may not relieve any symptoms. He might need more than one surgical intervention. He understands and he will sign a consent. DONALD/SHILA Voice ID: [id number] Report ID: [id number]
--- NOTE | 2019-04-29 23:02 | HP ---
Date of Admission: 04/29/2019 Primary Care Physician: Dr. Navarro. Consultants: Dr. Jasso, Surgery. Code Status: Full. Chief Complaint: Abdominal pain. History Of Present Illness: The patient is a 58-year-old male with past medical history of diabetes, on insulin, who was in his usual state of health until night prior to admission, the patient started having sudden onset of right upper quadrant abdominal pain with some nausea and vomiting. Patient also has decreased p.o. intake, worse with fried fatty foods. Patient denies any diarrhea. No fever or chills. The patient's symptoms are constant, moderate, progressively worsening, nonradiating. Patient came into the ER for further evaluation. His workup was essentially negative including normal white blood cell count. Liver enzymes were normal. His magnesium was low at 1.7. Imaging studies showed multi stone cholelithiasis, no acute gallbladder finding. CT scan of the abdomen did not show any surgically emergent finding. Moderate diffuse fatty infiltration of the liver. Patient was then referred for admission. Past Medical History: Diabetes mellitus type 2, insulin requiring. History of gallstones and kidney stones. Past Surgical History: Knee surgery, gastric sleeve, shoulder surgery x2, neck surgery and recent injection in his left hand for nodule. Medications: List reviewed. Allergies: NO KNOWN DRUG ALLERGIES. Social History: Patient denies any tobacco use. Does drink alcohol, a couple of mixed drinks on the weekends. No daily drinking. No illicit drug use. Patient is independent in his activities of daily living. Family History: Positive for coronary artery disease, type 2 diabetes, hypertension, dyslipidemia, father of cancer. Mother had stroke. Review of Systems: Ten-point systems reviewed, negative except as per HPI. Physical Examination: Vital Signs: Blood pressure 166/82, pulse 104, respirations 19, temperature 97.9, O2 sat 95% on room air. BMI is 42.8. General: Awake, alert, oriented x3. Morbidly obese male, in some mild distress due to pain. HEENT: Normocephalic, atraumatic. PERRLA. EOMI. Dry mucous membranes. Oropharynx is clear. Conjunctivae are anicteric. Neck: Supple. No JVD. Trachea midline. CV: S1, S2. Regular rate and rhythm. Peripheral pulses present. Respiratory: Moving air well bilaterally. No wheezing or stridor. No use of accessory muscles. Gastrointestinal: Abdomen is soft. Tenderness to palpation in the right upper quadrant. No rebound or guarding. Positive bowel sounds. Extremities: No clubbing, cyanosis, or edema. No calf tenderness. Neuro: Cranial nerves 2 through 12 intact grossly. No focal neurological deficits. Speech is normal. Skin: No rashes. Normal skin turgor. Psych: Mood is okay. Affect is full. Insight and judgment are good. Laboratory Data: Sodium 136, potassium 4.6, chloride 100, CO2 26, BUN 9, creatinine 0.77, glucose 281, calcium 9.7, magnesium 1.7. Total bilirubin 0.8, AST 32, ALT 55, alkaline phosphatase 51. Troponin less than 0.02. Albumin 3.9 , lipase 78. INR 0.91. WBC is 5.9, H and H 16.6, 47.1, platelets 170, neutrophils 70%. Imaging Studies: CT scan of the abdomen and pelvis personally reviewed, shows no bowel obstruction, free air, or surgically emergent finding. No active process. Patient has multi stone cholelithiasis. No evidence for duct, stone, or acute gallbladder or biliary tree process. Moderate diffuse fatty infiltration of the liver. Chest x-ray shows no acute cardiopulmonary process. Ultrasound of the abdomen shows multi stone cholelithiasis. No acute gallbladder finding. No stone identified. No biliary tree dilatation. Assessment: A 58-year-old male with: 1. Acute cholecystitis with symptomatic cholelithiasis without obstruction. Dr. Jasso has been consulted. We will continue on IV antibiotics and IV fluids. Keep n.p.o. No biliary tree obstruction seen on imaging studies. 2. Morbid obesity. BMI greater than 40. Counseled. 3. Diabetes mellitus type 2, insulin requiring, with hyperglycemia. We will start on sliding scale insulin and monitor blood glucose levels. 4. Hypomagnesemia. We will replace and monitor. Plan: Admit the patient to Med-Surg, place on observation. BRITTANY Voice ID: [id number] MTDD
[2019-04-30] MEDS: METRONIDAZOLE 500mg IVPB 500 MG/100 ML BAG IV SCH ×3 (00:52→17:05)
[2019-04-30] MEDS ORDERED: METRONIDAZOLE 500mg IVPB 500 MG/100 ML BAG IV SCH (01:00)
[2019-04-30] MEDS: D5 0.45 NS 1,000 ML IV SCH ×2 (03:31→10:21)
[2019-04-30 04:52] LABS: Basophils % 0.6 % (0-1.3); Hematocrit 42.9 % (39.6-49.0); RBC Red Blood Cell Count 4.71 M/uL (4.33-5.43)
[2019-04-30] MEDS: PANTOPRAZOLE 40MG TABLET PO SCH (05:02)
[2019-04-30 05:23] LABS: ALT/SGPT 41 U/L (12-78); AST/SGOT 24 U/L (15-37); Albumin 3.1 g/dL (3.4-5.0); Alkaline Phosphatase 39 U/L (45-117); BUN Blood Urea Nitrogen 8 mg/dL (7-18); Bicarbonate 30 mmol/L (21-32); Bilirubin Total 0.6 mg/dL (0.2-1.0); Glucose Level 241 mg/dL (74-106); Magnesium 1.5 mg/dL (1.8-2.4); Phosphorus 3.2 mg/dL (2.5-4.9); Potassium 3.6 mmol/L (3.5-5.1); Protein, Total 5.8 g/dL (6.4-8.2); Sodium Level 137 mmol/L (136-145)
[2019-04-30] MEDS ORDERED: MAGNESIUM SULFATE 1 gm IVPB 1 GM/100 ML BAG IV ONE ×2 (06:08→19:30)
--- NOTE | 2019-04-30 06:11 | EKG ---
Test Date: 2019-04-29 Test Time: 06:37:27 [employer]: [place] MEASUREMENT RESULTS: Intervals: Rate: 72 NM: 162 QRSD: 98 QT: 382 QTc: 418 [place]: P: 14 NM: 162 QRS: -13 T: 3 INTERPRETIVE STATEMENTS: Normal sinus rhythm Normal ECG Compared to ECG 09/05/2015 13:37:35 No significant changes Electronically Signed On 04-30-19 06:10:03 CDT by Foster Duran
[2019-04-30] MEDS ORDERED: KCL 20 MEQ/100 mL IVPB 20 MEQ/100 ML BAG IV SCH (07:00)
[2019-04-30] MEDS: INSULIN -REGULAR HUMAN 50 UNIT/0.5 ML ML SQ SCH ×4 (08:37→20:52)
[2019-04-30] MEDS: CIPROFLOXACIN 400mg IV 400 MG/200 ML BAG IV SCH ×2 (09:00→21:51)
[2019-04-30] MEDS ORDERED: PROPOFOL 200 MG/20 ML VIAL IV ONE (09:27)
[2019-04-30] MEDS ORDERED: MIDAZOLAM HCL 2 MG/2 ML INJ ONE (09:27)
[2019-04-30] MEDS ORDERED: ONDANSETRON 4 MG/2 ML VIAL ONE ×2 (09:27→12:07)
[2019-04-30] MEDS ORDERED: FENTANYL CITR 100 MCG/2 ML ONE (09:27)
[2019-04-30] MEDS ORDERED: NEOSTIGMINE 1 MG/ML -10 ML VIAL ONE (09:27)
[2019-04-30] MEDS ORDERED: GLYCOPYRROLATE 0.2 MG/ML SYR ONE (09:27)
[2019-04-30] MEDS ORDERED: MORPHINE 10 MG/ML VIAL ONE (09:28)
[2019-04-30] MEDS ORDERED: LIDOCAINE 1% MPF 5 ML VIAL ONE (09:28)
[2019-04-30] MEDS ORDERED: KETOROLAC 30 MG/ML INJ ONE (09:28)
[2019-04-30] MEDS ORDERED: ROCURONIUM 50 MG/5 ML VIAL IV ONE ×2 (09:28→10:52)
[2019-04-30] MEDS ORDERED: BUPIVACAINE 0.5% PF 10 ML VIAL ONE (09:35)
[2019-04-30] MEDS ORDERED: NA CHLORIDE 0.9% 1,000 ML ONE ×2 (09:39→11:05)
[2019-04-30] MEDS ORDERED: INSULIN -REGULAR HUMAN 50 UNIT/0.5 ML ML ONE (11:57)
[2019-04-30] MEDS ORDERED: PROMETHAZINE 25 MG/ML VIAL ONE (12:07)
[2019-04-30] MEDS ORDERED: METOCLOPRAMIDE 10 MG/2mL INJ ONE (12:22)
[2019-04-30] MEDS ORDERED: HYDROMORPHONE HCL 1 MG/ML INJ ONE (12:30)
--- NOTE | 2019-04-30 12:41 | P.BOP ---
Preoperative diagnosis: acute cholecystitis, symptomatic cholelithiasis, morbid obesity, hx of sulema Postoperative diagnosis: same, extensive intrabdominal adhesions Primary procedure: Laparoscopic cholecystectomy Secondary procedure: Laparoscopic extensivelysis of adhesions Estimated blood loss: <20cc Specimen: gb Findings: see dictation Anesthesia: General Complications: None Transferred to: Recovery Room Condition: Good
[2019-04-30] MEDS ORDERED: TRESIBA FLEX TOUCH PEN SQ SCH (17:30)
--- NOTE | 2019-04-30 23:01 | OP ---
Date of Procedure: 04/30/2019 Surgeon: Shahram Jasso MD Preoperative Diagnoses: Acute cholecystitis; symptomatic cholelithiasis; morbid obesity; history of gastric surgery, bariatric. Postoperative Diagnoses: Acute cholecystitis; symptomatic cholelithiasis; morbid obesity; history of gastric surgery, bariatric; extensive intra-abdominal adhesions. Procedure: Laparoscopic cholecystectomy, laparoscopic extensive lysis of adhesions. Estimated Blood Loss: Less than 20 cc. Findings: Extensive adhesions in the upper abdomen. Patient has an open laparotomy done in 1997 for gastric procedure. He does not remember the name of it. Both adhesions needs to be removed in orde r for us to access the area. We spent about half the time in lysis of adhesions. Anesthesia: General plus local. Specimen: Gallbladder. Indications For Procedure: This the case of a male, who comes to us with above diagnosis. Fully exp lained the benefits and risks of laparoscopic, possible open cholecystectomy, which include but are n ot limited to infection, bleeding, damage to adjacent structures, anesthesia complications, choledoch olithiasis, bile leak, pancreatitis, [place], and even . He also understands this may not relieve an y symptoms. He might need more than one surgical intervention. He understood, signed the consent. Description Of Procedure: Patient was brought to the operating room, placed in supine position. Ane sthesia was done without complication. Abdominal area was prepped and draped in a sterile fashion. Marcaine 0.5% was injected for local anesthetic after time-out. An incision was made in the infraumb ilical region. Incision was carried down to fascia, which was opened under direct vision. Peritoneu m was encountered, opened under direct vision. Vicryl #1 placed inside of the fascia. Leah trocar was carefully introduced. No bleeding was obtained. After that, we placed the camera in. We notic ed extensive intra-abdominal adhesions in the upper abdomen. So, I found a little spot in the right upper quadrant that I could put a 5 mm trocar under direct visualization. Using LigaSure device, we proceed with lysis of adhesions that took about half of the time of the surgery. After removal of al l the adhesions from the upper abdomen, then we were able to put 2 more trocars 5 mm in the right upp er quadrant under direct visualization. This allowed me to put a grasper in the fundus of the gallbl adder. More adhesions of omentum to the gallbladder were carefully removed. Another grasper was ronnie garett in the infundibulum and the gallbladder was retracted in the inferolateral fashion exposing the t riangle of Calot and obtaining critical view of safety. Cystic duct and cystic artery were clearly i solated, freed circumferentially, and a connection between those and the gallbladder was clearly iden tified. I proceeded to ligate those by using at least 3 clips proximal, 1 clip distal, ligation in m iddle. Same was done with the cystic artery. A small little branch of the cystic artery was also li gated protecting the hepatic arteries and common bile duct at all times. At that moment, I proceeded to remove the gallbladder from liver using Bovie cauterizer and removed from abdominal cavity using the EndoCatch through the umbilical incision. The area was inspected once again. Clips were intact, gallbladder fossa with no bleeding, and area of lysis of adhesions with no bleeding. At that moment , I proceeded to remove the trocars under direct vision. Deflated the pneumoperitoneum. Closed the fascia with #1 Vicryl. Irrigated subcu tissue, closed that with 3-0 chromic, and skin with ann-marie. Sponge count and instrument counts were correct. The patient tolerated the procedure well. The pat ient was sent to recovery in stable condition. Postoperative Plan: If he tolerates diet and medically clear, then he might be able to go home tonig ht or tomorrow after eating diet. If he goes home, he was advised to follow up in my office in 1 [facility]. Call for appointment at [phone]. Keep area dry for 48 hours, then may shower. No heavy lifting, no more than 20 pounds. DONALD/SHILA Voice ID: [id number] Report ID: [id number]
[2019-05-01] MEDS: METRONIDAZOLE 500mg IVPB 500 MG/100 ML BAG IV SCH ×2 (01:12→08:14)
--- NOTE | 2019-05-01 02:32 | DS ---
Date of Discharge: 04/30/2019 Consultants: Dr. Jasso. Procedure: Laparoscopic cholecystectomy, extensive lysis of adhesions. Discharge Diagnoses: 1. Acute symptomatic cholelithiasis with acute cholecystitis without obstruction. 2. Abdominal adhesions status post lysis of adhesions. 3. Morbid obesity. 4. Diabetes mellitus type 2, insulin requiring with hyperglycemia. 5. Hypomagnesemia. Hospital Course: Patient is a 58-year-old male with past medical history of diabetes on insulin, comes in with abdominal pain. Patient was found to have symptomatic cholelithiasis and acute cholecystitis. He was admitted to the hospital, was kept n.p.o., started on IV fluids, and IV antibiotics. Dr. Jasso with General Surgery was consulted. Patient went for cholecystectomy, and tolerated the procedure well. Patient also had significant adhesions which required correction. Patient has had previous history of gastric surgery with gastric sleeve. Overall, he did well postoperatively. Pain was improved. His imaging studies did not show any obstruction. There was no common bile duct distention. Choledocholithiasis was not suspected. His bilirubin was normal. Liver enzymes were also normal. Patient did have some hypokalemia which was corrected. His blood sugars were not well controlled. He was counseled regarding diet and exercise changes. Patient was also on D5 half NS, which also contributed to the hyperglycemia as he was n.p.o. and diabetic. Patient was then cleared for discharge as he was able to tolerate his diet. He was then discharged home in a stable condition. Activity: No lifting more than 10 pounds. Diet: Diabetic. Followup: Follow up with primary care physician in 2-3 days, follow up with surgeon, Dr. Jasso in 7 to 10 days for wound check. Return to ER for worsening condition. Instructions: Wound care instructions per Dr. Jasso. Medications: As per medication reconciliation list. Physical Examination: General: Awake, alert, oriented x3. No acute distress. Obese male. CV: S1-S2. No murmurs. Respiratory: Moving air well bilaterally. No wheezing or stridor. Gastrointestinal: Abdomen is soft, nontender, nondistended. Positive bowel sounds. Extremities: No clubbing, cyanosis, edema. Neurologic: Nonfocal. Skin: Incision site clean, dry, and intact. ADDENDUM patient's blood sugar levels greater than 400 having some nausea after his diet. Will adjust insulin dose monitor overnight. SA/MODL Voice ID: [id number] Report ID: [id number] MTDD
[2019-05-01] MEDS: HYDROCODONE/APAP 7.5/325 MG TAB PO PRN ×2 (03:57→09:11)
[2019-05-01 04:19] LABS: Absolute Lymphocytes (CBC) 1.9 K/uL (0.7-4.9); Basophils % 0.6 % (0-1.3); Hematocrit 41.5 % (39.6-49.0); Lymphocytes % 32.7 % (15.3-44.8); MPV 8.1 fL (7.6-11.3); RBC Red Blood Cell Count 4.54 M/uL (4.33-5.43)
[2019-05-01 04:34] LABS: ALT/SGPT 98 U/L (12-78); AST/SGOT 81 U/L (15-37); Albumin 2.9 g/dL (3.4-5.0); Alkaline Phosphatase 41 U/L (45-117); BUN Blood Urea Nitrogen 10 mg/dL (7-18); Bicarbonate 28 mmol/L (21-32); Bilirubin Total 0.6 mg/dL (0.2-1.0); Glucose Level 200 mg/dL (74-106); Magnesium 1.8 mg/dL (1.8-2.4); Potassium 3.5 mmol/L (3.5-5.1); Protein, Total 5.5 g/dL (6.4-8.2); Sodium Level 139 mmol/L (136-145)
[2019-05-01] MEDS ORDERED: POTASSIUM CL SA 10 MEQ TAB PO ONE (04:36)
[2019-05-01] MEDS ORDERED: MAGNESIUM SULFATE 1 gm IVPB 1 GM/100 ML BAG IV ONE (05:00)
[2019-05-01] MEDS: PANTOPRAZOLE 40MG TABLET PO SCH (05:36)
[2019-05-01] MEDS: CIPROFLOXACIN 400mg IV 400 MG/200 ML BAG IV SCH (08:13)
[2019-05-01] MEDS: INSULIN -REGULAR HUMAN 50 UNIT/0.5 ML ML SQ SCH (08:13)
[2019-05-01 08:19] VITALS: O2SAT 95
[2019-05-01 08:32] VITALS: BP 124/65; TEMP 97.6
[2019-05-01] MEDS ORDERED: HOME MED 1 EA UNK (Empagliflozin [Jardiance] 1 TAB) PO SCH (09:00)
--- NOTE | 2019-05-01 11:29 | PN ---
Date of Progress Note: 05/01/2019 Diagnoses: Acute cholecystitis, symptomatic cholelithiasis, morbid obesity, status post lap phil. Patient going well. No complaint. No nausea, no vomiting. No shortness of breath. Objective: Chest: Clear. Abdomen: Soft and depressible. Intact surgical site. Extremities: No calf pain. Plan: From a surgical standpoint, he is cleared to be discharged home. Followup: Follow up in my office in 1 week. Call for appointment, [phone]. No heavy lifting, no m ore than 20 pounds. May take a shower tomorrow with dressings off. Medications: See orders. DONALD/MODL Voice ID: [id number] Report ID: [id number]
--- NOTE | 2019-05-01 18:14 | PN ---
Date of Progress Note: 05/01/2019 Subjective: Patient seen and examined. Chart reviewed and case discussed with RN and Dr. Jasso. Patient is doing better. No further nausea, able to ambulate, did have bowel movement. Blood sugar levels are significantly better today. Medications: List reviewed. Physical Examination: Vital Signs: Temperature 97.6, heart rate 74, blood pressure 124/65, respirations 18, O2 96% on room air. General: Awake, alert, oriented x3, not in any acute distress. CV: S1, S2. Regular rate and rhythm. Peripheral pulses present. Respiratory: Moving air well bilaterally. No wheezing or stridor. Gastrointestinal: Abdomen is soft, nontender, nondistended. Positive bowel sounds. Incision site c lean, dry, intact, bandaged. Extremities: No clubbing, cyanosis, edema. Neurologic: Nonfocal. Laboratory Data: Sodium 139, potassium 3.5, chloride 106, CO2 of 28, BUN 10, creatinine 0.83, glucos e 200, calcium 8.1, magnesium 1.8. AST 81, ALT 98, alkaline phosphatase 41. WBC 5.9, H and H 14.4 a nd 41.5, platelets 136. Assessment And Plan: 1.Acute cholecystitis without obstruction and the patient has symptomatic cholelithiasis, status pos t laparoscopic cholecystectomy and lysis of adhesions. 2.Diabetes mellitus type 2, insulin requiring with hyperglycemia, not well controlled. 3.Morbid obesity. BMI 43.1. 4.Hypomagnesemia, replaced. Plan: Discharge home. BRITTANY Voice ID: [id number] Report ID: [id number]
--- OUTSIDE RECORDS SUMMARY | 2019-05-21 03:03 | XMS REPORT | Summary of Care ---
:1960 Author Name EYAD HEART M.D. Address Unavailable Unavailable , Care Team Providers Name Role Phone EYAD HEART M.D. Unavailable Unavailable EYAD HEART MD Unavailable Unavailable Unavailable Unavailable Unavailable Functional Status Name Dates Details Functional status health issues are not documented Status: Name Dates Details Cognitive status health issues are not documented Status: Problems Name Dates Details Carpal tunnel syndrome of left wrist (354.0, G56.02) Status: Active Dupuytren's contracture of left hand (728.6, M72.0) Status: Active Dupuytren's contracture of right hand (728.6, M72.0) Status: Active Medications Name Dates Details Victoza SOPN Refills: 0 Active Tresiba SOLN Refills: 0 Active metFORMIN HCl TABS Refills: 0 Active Jardiance 10 MG Oral Tablet Refills: 0 Active Meloxicam TABS Refills: 0 Active PriLOSEC OTC TBEC Refills: 0 Active Allergies and Adverse Reactions Name Dates Details No Known Drug Allergies (Allergy) Status: Active Past Medical History Name Dates Details History of Diabetes mellitus, type 2 (250.00, E11.9) Status: Resolved Procedures Procedure Dates Details Occupational Therapy Date: 12-Dec-2018 Post Op Promis 29 Survey Date: 16-Dec-2018 History of Knee Surgery Completed History of Neck Surgery Completed History of Shoulder Surgery Completed Immunization Name Dates Details Immunizations not documented Social History Name Dates Details - Status: Name Dates Details Former smoker Vital Signs Date Test Result Details No Known Vitals to report Results Date Description Value Details Results not documented Plan of Care Name Dates Details Planned Observations Post Op Promis 29 Survey On: 16-Dec-2018 Intent Planned Goals not documented Interventions Provided Labs/Procedures/ImagingOccupational Therapy; To Be Done: 12 Dec 2018PlanPatient Education/Instructions: Reassurance Orders: Occupational Therapy Follow Up: Patient will follow up in 6 weeks.I have recommended that he continue home strengthening and restorative care. The patient may return to activity as tolerated. Instructions Name Dates Details Instructions not documented Encounters Appointment; EYAD HEART M.D. On: 11-Nov-2018 10:30 Encounter Diagnosis: Problem not documented Appointment; EYAD HEART M.D. On: 30-Nov-2018 10:00 Encounter Diagnosis: Problem not documented Appointment; EYAD HEART M.D. On: 12-Dec-2018 9:30 Encounter Diagnosis: Problem not documented
== END 2019-05-01 10:45 | disposition home or self-care (01) ==
LOC: ER 05:16 → ERHOLD 10:29 → 4TH 12:11
PROVIDERS: ADMIT Family Medicine; ATTEND Family Medicine
PROC: 0DNW4ZZ Release Peritoneum, Percutaneous Endoscopic Approach (ICD-10-PCS; 2019-04-30)
PROC: 0FT44ZZ Resection of Gallbladder, Percutaneous Endoscopic Approach (ICD-10-PCS; principal; 2019-04-30 10:00)
DX: K80.00 Calculus of gallbladder with acute cholecystitis without obstruction (principal); E66.01 Morbid (severe) obesity due to excess calories; Z68.41 Body mass index [BMI] 40.0-44.9, adult; E11.65 Type 2 diabetes mellitus with hyperglycemia; E83.42 Hypomagnesemia; Z98.84 Bariatric surgery status; E87.6 Hypokalemia; K66.0 Peritoneal adhesions (postprocedural) (postinfection)
CPT/HCPCS: 96365; 96367; 96361; 96368; 93005; 85025 ×3; 81001; 80048; 36415 ×2; 83735 ×4; 82947; 84100; 85610; 82962 ×9; 80076; 88304; 84484; 83690; 80053 ×2; 83880; 74177; 71045; 76705; 94760 ×2; 96375; 99285; 47562; 49329; Q9967; J2704; J2710; J2765; J2550 ×2; J2250; J3010; J3475 ×4; J1170; G0378 ×5; J7799 ×2; J7030 ×4; J2405 ×3; J0744 ×5